=== PATIENT | male | born 1995 | race Caucasian/White ===

== ENCOUNTER 2017-08-11 13:23 | Inpatient (IN) | payer OTHER ==
[2017-08-11] MEDS: NS 1,000 ML IV ONE ×2 (13:45→16:38)
[2017-08-11] MEDS ORDERED: ONDANSETRON 4 MG/2 ML VIAL IVP ONE (14:14)
[2017-08-11 14:18] LABS: PLATELET COUNT 203 10^3/uL (150-400)
--- NOTE | 2017-08-11 14:55 | EDPHY ---
H & P Stated Complaint: dx viral inf/ cough/n/v not getting better Time Seen by Provider: 08/11/17 14:00 HPI/ROS: CHIEF COMPLAINT: Vomiting, cough, diarrhea HISTORY OF PRESENT ILLNESS: The patient is type 1 diabetic who presents to the emergency department with a one-week history of vomiting, diarrhea and mild cough. The patient reportedly was seen at urgent care earlier in the week and given a prescription for anti emetics. He reports that he continues to have ongoing vomiting and loose stool. The patient reports he takes insulin for management of his diabetes. The patient reports he has had a dry slightly productive cough over the past several days. REVIEW OF SYSTEMS: A comprehensive 10 point review of systems is otherwise negative aside from elements mentioned in the history of present illness. Source: Patient Exam Limitations: No limitations - Personal History Current Tetanus/Diphtheria Vaccine: Yes - Medical/Surgical History Hx Asthma: No Hx Chronic Respiratory Disease: No Hx Diabetes: Yes Hx Cardiac Disease: No Hx Renal Disease: No Hx Cirrhosis: No Hx Alcoholism: No Hx HIV/AIDS: No Hx Splenectomy or Spleen Trauma: No Other PMH: Diabetic - Social History Smoking Status: Current some day smoker - Physical Exam Exam: General Appearance: Alert, no distress Eyes: Pupils equal and round no pallor or injection ENT, Mouth: Mucous membranes moist Respiratory: There are no retractions, lungs are clear to auscultation Cardiovascular: Regular rate and rhythm Gastrointestinal: Abdomen is soft and nontender, no masses, bowel sounds normal Neurological: A&O, normal motor function, normal sensory exam, normal cranial nerves Skin: Warm and dry, no rashes Musculoskeletal: Neck is supple nontender Extremities: symmetrical, full range of motion Constitutional: Initial Vital Signs Temperature (C) 37 C 08/11/17 13:27 Heart Rate 75 08/11/17 13:27 Respiratory Rate 18 08/11/17 13:27 Blood Pressure 125/86 H 08/11/17 13:27 O2 Sat (%) 92 08/11/17 13:27 O2 Delivery Mode Room Air Allergies/Adverse Reactions: No Known Allergies Allergy (Verified 08/11/17 13:26) Home Medications: Medication Instructions Recorded Acetaminophen [Tylenol ES 500 mg 500 mg PO Q6 PRN 08/11/17 (*)] Insulin Aspart [novoLOG] 25 unit SQ 5XD 08/11/17 Ranitidine HCl [Zantac] 150 mg PO DAILY PRN 08/11/17 Medical Decision Making - Diagnostics Imaging Results: Imaging Impressions Chest X-Ray 08/11/17 14:12 Impression: Clear lungs. No pneumonia. ED Course/Re-evaluation: The patient had an IV established. He received a L of normal saline. He received 4 mg of IV Zofran. Given his cough and chest x-ray was obtained which demonstrates no evidence of an obvious pneumonia. The patient is noted to have hyperglycemia with an anion gap of 17. The patient's venous pH is normal. The patient's flu PCR is positive. The patient received 2 L of normal saline. The patient is noted to have a normal pH. The patient does appear clinically dehydrated. I do feel the patient needs admission to the hospital in the setting of his hyponatremia, hypokalemia, acute influenza and borderline diabetic ketoacidosis. Consultation was made with Dr. Roland from the hospitalist service who will admit the patient. The patient received 10 units of IV insulin has been started on insulin drip for management of his borderline diabetic ketoacidosis. Differential Diagnosis: Differential diagnosis considered includes diabetic ketoacidosis, hyperglycemia , dehydration, pneumonia, metabolic abnormality, renal failure Critical Care Time: Critical care time exclusive of procedures and exclusive of the PA's time was 32 minutes, performed by myself, Marcial Duran MD. The patient presents to the ED with diabetic ketoacidosis, acute influenza and dehydration. The patient received a insulin bolus and was started on insulin drip. He will be admitted to the intensive care unit for further stabilization this evening. - Data Points Laboratory Results: Laboratory Results 08/11/17 13:50 08/11/17 13:50 08/11/17 08/11/17 08/11/17 14:55 14:20 13:50 WBC RBC Hgb Hct MCV MCH MCHC RDW Plt Count MPV Neut % (Auto) Lymph % (Auto) [place] % (Auto) Eos % (Auto) Baso % (Auto) Nucleat RBC Rel Count Absolute Neuts (auto) Absolute Lymphs (auto) Absolute Monos (auto) Absolute Eos (auto) Absolute Basos (auto) Absolute Nucleated RBC Immature Gran % Immature Gran # Puncture Site NONE GIVEN Patient Temperature 37.0 DEGREES DEGREES VBG pH 7.38 (7.31-7.42) VBG HCO3 23 mEQ/L mEQ/L (22-26) VBG Total CO2 24 mEq/L mEq/L (23-27) VBG O2 Saturation 87 % H % (65-75) VBG Base Excess -1.9 mEq/L mEq/L (-2.5-2.5) Mixed VBG pCO2 39 mmHg L mmHg (40-44) Mixed VBG pO2 57 mmHg H mmHg (35-40) Sodium Potassium Chloride Carbon Dioxide Anion Gap BUN Creatinine Estimated GFR Glucose Calcium Beta-Hydroxybutyrate 3.27 mmol/L H mmol/L (0.02-0.27) Nasal Influenza A PCR FLU A DETECTED H (NEGATIVE) Nasal Influenza B PCR NEGATIVE FOR FLU B (NEGATIVE) Serum Ketones Cancelled 08/11/17 08/11/17 13:50 13:50 WBC 10.78 10^3/uL H 10^3/uL (3.80-9.50) RBC 5.25 10^6/uL 10^6/uL (4.40-6.38) Hgb 15.3 g/dL g/dL (13.7-17.5) Hct 43.1 % % (40.0-51.0) MCV 82.1 fL fL (81.5-99.8) MCH 29.1 pg pg (27.9-34.1) MCHC 35.5 g/dL g/dL (32.4-36.7) RDW 11.9 % % (11.5-15.2) Plt Count 203 10^3/uL 10^3/uL (150-400) MPV 11.1 fL fL (8.7-11.7) Neut % (Auto) 81.9 % H % (39.3-74.2) Lymph % (Auto) 10.9 % L % (15.0-45.0) [place] % (Auto) 6.4 % % (4.5-13.0) Eos % (Auto) 0.0 % L % (0.6-7.6) Baso % (Auto) 0.3 % % (0.3-1.7) Nucleat RBC Rel Count 0.0 % % (0.0-0.2) Absolute Neuts (auto) 8.84 10^3/uL H 10^3/uL (1.70-6.50) Absolute Lymphs (auto) 1.17 10^3/uL 10^3/uL (1.00-3.00) Absolute Monos (auto) 0.69 10^3/uL 10^3/uL (0.30-0.80) Absolute Eos (auto) 0.00 10^3/uL L 10^3/uL (0.03-0.40) Absolute Basos (auto) 0.03 10^3/uL 10^3/uL (0.02-0.10) Absolute Nucleated RBC 0.00 10^3/uL 10^3/uL (0-0.01) Immature Gran % 0.5 % % (0.0-1.1) Immature Gran # 0.05 10^3/uL 10^3/uL (0.00-0.10) Puncture Site Patient Temperature VBG pH VBG HCO3 VBG Total CO2 VBG O2 Saturation VBG Base Excess Mixed VBG pCO2 Mixed VBG pO2 Sodium 128 mEq/L L mEq/L (134-144) Potassium 4.1 mEq/L mEq/L (3.5-5.2) Chloride 88 mEq/L L mEq/L (97-110) Carbon Dioxide 23 mEq/l mEq/l (22-31) Anion Gap 17 mEq/L H mEq/L (8-16) BUN 15 mg/dL mg/dL (7-23) Creatinine 1.0 mg/dL mg/dL (0.7-1.3) Estimated GFR > 60 Glucose 529 mg/dL H* mg/dL (70-100) Calcium 9.0 mg/dL mg/dL (8.5-10.4) Beta-Hydroxybutyrate Nasal Influenza A PCR Nasal Influenza B PCR Serum Ketones Medications Given: Discontinued Medications Sodium Chloride (Ns) 1,000 mls @ 0 mls/hr IV ONCE ONE; Wide Open PRN Reason: Protocol Stop: 08/11/17 14:13 Last Admin: 08/11/17 13:45 Dose: 1,000 mls Ondansetron HCl (Zofran) 4 mg IVP EDNOW ONE Stop: 08/11/17 14:15 Last Admin: 08/11/17 14:20 Dose: 4 mg Oseltamivir Phosphate (Tamiflu) 75 mg PO EDNOW ONE Stop: 08/11/17 15:11 Last Admin: 08/11/17 15:35 Dose: 75 mg Departure - Departure Disposition: [facility] Acute Clinical Impression: Influenza, Diabetic ketoacidosis Condition: Fair
[2017-08-11] MEDS ORDERED: OSELTAMIVIR PHOSPHATE 75 MG CAP PO ONE (15:10)
[2017-08-11] MEDS ORDERED: INSULIN REGULAR HUMAN 100 UNIT, COSIGN. REQUIRED 1 EA in NS 100 ML IV ONE (15:11)
[2017-08-11] MEDS ORDERED: INSULIN REGULAR HUMAN 100 UNIT/ML IVP ONE (15:11)
[2017-08-11] MEDS ORDERED: ALBUTEROL 3 ML DEYVIAL IH PRN (16:15)
[2017-08-11] MEDS ORDERED: ONDANSETRON DISINTEGRATING 4 MG TAB PO PRN (16:15)
[2017-08-11] MEDS ORDERED: ACETAMINOPHEN 325 MG TAB PO PRN (16:15)
[2017-08-11] MEDS ORDERED: ONDANSETRON 4 MG/2 ML VIAL IVP PRN (16:15)
[2017-08-11] MEDS ORDERED: NS 1,000 ML IV ONE (16:21)
[2017-08-11] MEDS ORDERED: NS 1,000 ML IV SCH (16:30)
[2017-08-11] MEDS ORDERED: INSULIN REGULAR HUMAN 100 UNIT in NS 100 ML IV SCH ×2 (16:30→20:15)
[2017-08-11] MEDS ORDERED: PROTOCOL MAGNESIUM 1 DOSE IV PRN (16:52)
[2017-08-11] MEDS ORDERED: PROTOCOL POTASSIUM 1 DOSE MISC PRN ×2 (16:52)
--- NOTE | 2017-08-11 16:58 | PDGENHP ---
History and Physical - Chief Complaint N/V - History of Present Illness This is a 22 yo male with hx of IDDM since age 4 with insulin pump who has been having n/v, fever, malaise for a week. He did not receive an influenza vaccination this year. In the E.D he was diagnosed with Influenza A. His labs are c/w glucose around 500's, CO2 23, AG 17. He is being admitted for Influenza A, dehydration, and mild DKA. He feels better since starting IVF. He is no longer having Nausea. Denies CP, SOB, palpitations, leg edema, focal weakness. PMHx: DMI PSHx: none Soc: no E, daily T, student FmHx: hx of DM I (twin brother) History Information - Allergies/Home Medication List Allergies/Adverse Reactions: No Known Allergies Allergy (Verified 08/11/17 13:26) Home Medications: Acetaminophen [Tylenol ES 500 mg (*)] 500 mg PO Q6 PRN 08/11/17 [Last Taken 10/27 10:00] Insulin Aspart [novoLOG] 25 unit SQ 5XD 08/11/17 [Last Taken 08/11/17 13:00] Ranitidine HCl [Zantac] 150 mg PO DAILY PRN 08/11/17 [Last Taken 5 Days Ago ~] I have personally reviewed and updated: family history, medical history, social history - Social History Smoking Status: Current some day smoker Review of Systems Review of Systems: ROS: 10pt was reviewed & negative except for what was stated in HPI & below Physical Exam Physical Exam: Temp Pulse Resp BP Pulse Ox 36.9 C 88 18 129/52 H 92 08/11/17 15:30 08/11/17 15:30 08/11/17 15:30 08/11/17 15:30 08/11/17 15:33 O2 (L/minute) 2 Constitutional: no apparent distress Eyes: PERRL, EOMI Ears, Nose, Mouth, Throat: hearing normal, dry mucous membranes Cardiovascular: regular rate and rhythym, No bradycardia, No edema Respiratory: no respiratory distress, no rales or rhonchi Gastrointestinal: normoactive bowel sounds, soft, non-tender abdomen Genitourinary: no bladder fullness Skin: warm Musculoskeletal: full muscle strength Neurologic: AAOx3 Psychiatric: interacting appropriately, not anxious, not encephalopathic Lab Data & Imaging Review 08/11/17 13:50 08/11/17 13:50 WBC 10.78 10^3/uL (3.80-9.50) H 08/11/17 13:50 RBC 5.25 10^6/uL (4.40-6.38) 08/11/17 13:50 Hgb 15.3 g/dL (13.7-17.5) 08/11/17 13:50 Hct 43.1 % (40.0-51.0) 08/11/17 13:50 MCV 82.1 fL (81.5-99.8) 08/11/17 13:50 MCH 29.1 pg (27.9-34.1) 08/11/17 13:50 MCHC 35.5 g/dL (32.4-36.7) 08/11/17 13:50 RDW 11.9 % (11.5-15.2) 08/11/17 13:50 Plt Count 203 10^3/uL (150-400) 08/11/17 13:50 MPV 11.1 fL (8.7-11.7) 08/11/17 13:50 Neut % (Auto) 81.9 % (39.3-74.2) H 08/11/17 13:50 Lymph % (Auto) 10.9 % (15.0-45.0) L 08/11/17 13:50 [place] % (Auto) 6.4 % (4.5-13.0) 08/11/17 13:50 Eos % (Auto) 0.0 % (0.6-7.6) L 08/11/17 13:50 Baso % (Auto) 0.3 % (0.3-1.7) 08/11/17 13:50 Nucleat RBC Rel Count 0.0 % (0.0-0.2) 08/11/17 13:50 Absolute Neuts (auto) 8.84 10^3/uL (1.70-6.50) H 08/11/17 13:50 Absolute Lymphs (auto) 1.17 10^3/uL (1.00-3.00) 08/11/17 13:50 Absolute Monos (auto) 0.69 10^3/uL (0.30-0.80) 08/11/17 13:50 Absolute Eos (auto) 0.00 10^3/uL (0.03-0.40) L 08/11/17 13:50 Absolute Basos (auto) 0.03 10^3/uL (0.02-0.10) 08/11/17 13:50 Absolute Nucleated RBC 0.00 10^3/uL (0-0.01) 08/11/17 13:50 Immature Gran % 0.5 % (0.0-1.1) 08/11/17 13:50 Immature Gran # 0.05 10^3/uL (0.00-0.10) 08/11/17 13:50 Puncture Site NONE GIVEN 08/11/17 14:55 Patient Temperature 37.0 DEGREES 08/11/17 14:55 VBG pH 7.38 (7.31-7.42) 08/11/17 14:55 VBG HCO3 23 mEQ/L (22-26) 08/11/17 14:55 VBG Total CO2 24 mEq/L (23-27) 08/11/17 14:55 VBG O2 Saturation 87 % (65-75) H 08/11/17 14:55 VBG Base Excess -1.9 mEq/L (-2.5-2.5) 08/11/17 14:55 Mixed VBG pCO2 39 mmHg (40-44) L 08/11/17 14:55 Mixed VBG pO2 57 mmHg (35-40) H 08/11/17 14:55 Sodium 128 mEq/L (134-144) L 08/11/17 13:50 Potassium 4.1 mEq/L (3.5-5.2) 08/11/17 13:50 Chloride 88 mEq/L (97-110) L 08/11/17 13:50 Carbon Dioxide 23 mEq/l (22-31) 08/11/17 13:50 Anion Gap 17 mEq/L (8-16) H 08/11/17 13:50 BUN 15 mg/dL (7-23) 08/11/17 13:50 Creatinine 1.0 mg/dL (0.7-1.3) 08/11/17 13:50 Estimated GFR > 60 08/11/17 13:50 Glucose 529 mg/dL (70-100) H* 08/11/17 13:50 Calcium 9.0 mg/dL (8.5-10.4) 08/11/17 13:50 Beta-Hydroxybutyrate 3.27 mmol/L (0.02-0.27) H 08/11/17 13:50 Nasal Influenza A PCR FLU A DETECTED (NEGATIVE) H 08/11/17 14:20 Nasal Influenza B PCR NEGATIVE FOR FLU B (NEGATIVE) 08/11/17 14:20 Serum Ketones Cancelled 08/11/17 13:50 Assessment & Plan Assessment: #DM I with hyperglycemia and mild DKA. #Hyponatremia likely fictitious secondary to hyperglycemia #Significant Dehydration #Influenza A #Nausea Plan: -Admit to Step Down -IVF. Have discussed with the ED team to provide additional IVF as only one liter has been given -Insulin drip -will hold his insulin pump -Tamiflu -Antiemetics -Supportive Care -SCD's -Full code total critical care time spent on evaluation and management is 55 minutes
[2017-08-11] MEDS ORDERED: MAGNESIUM SULF 1 GM/DEXTROSE 100 ML IV ONE (18:37)
[2017-08-11] MEDS ORDERED: D50W 25 GM/50 ML SYR IVP ONE (19:58)
[2017-08-11] MEDS ORDERED: INSULIN REGULAR HUMAN 100 UNIT/ML IVP PRN (20:15)
[2017-08-11] MEDS ORDERED: D50W 25 GM/50 ML SYR IVP PRN (20:15)
[2017-08-11] MEDS: FAMOTIDINE 20 MG TAB PO SCH (20:39)
[2017-08-11] MEDS: BENZONATATE 100 MG CAP PO SCH (20:39)
[2017-08-11] MEDS ORDERED: PARAMETERS MISC PRN (22:23)
[2017-08-11] MEDS ORDERED: D50W 25 GM/50 ML VIAL IVP PRN (22:23)
[2017-08-11] MEDS ORDERED: INSULIN REGULAR HUMAN 100 UNIT/ML SC ONE (22:30)
[2017-08-12] MEDS: NS W/ 20 KCl/L 1,000 ML IV SCH ×2 (01:31→06:28)
[2017-08-12] MEDS ORDERED: INSULIN LISPRO 100 UNIT/ML SC ONE (01:37)
[2017-08-12 03:57] LABS: PLATELET COUNT 188 10^3/uL (150-400)
[2017-08-12] MEDS ORDERED: MAGNESIUM SULF 1 GM/DEXTROSE 100 ML IV ONE (05:19)
[2017-08-12] MEDS ORDERED: D5W NS 1,000 ML IV SCH (07:00)
[2017-08-12] MEDS ORDERED: INSULIN REGULAR, HUMAN 100 UNIT/1 ML VIAL LOW SC SCH (07:30)
[2017-08-12] MEDS ORDERED: OSELTAMIVIR PHOSPHATE 75 MG CAP PO SCH (08:00)
[2017-08-12] MEDS: BENZONATATE 100 MG CAP PO SCH (08:09)
[2017-08-12] MEDS: FAMOTIDINE 20 MG TAB PO SCH (08:09)
--- NOTE | 2017-08-12 08:15 | PDMN ---
Medical Necessity Medical necessity: M123 dehydration: persistant- req IV fluids>3L /day, with hyponatremia, hyperglycemia- mild DKA, influenza A +, N , O2 req ( 85% RA- 92% 2L) - PT with DM I,
[2017-08-12] MEDS ORDERED: D50W 25 GM/50 ML SYR IVP PRN (08:20)
[2017-08-12] MEDS ORDERED: INSULIN PUMP, PATIENT OWN 1 EA MISC SCH (08:30)
[2017-08-12 11:38] VITALS: TEMP 97.7
[2017-08-12 14:41] VITALS: BP 114/57; PULSE 94; RESP 17; O2SAT 93
--- NOTE | 2017-08-12 15:51 | ASMTCMCOM ---
CM Note CM Note Notes: Pateint dc'd to home independent, CM available should needs arise. Date Signed: 08/12/2017 03:51 PM Electronically Signed By:Debbie Bautista RN
--- NOTE | 2017-08-12 15:51 | ASMTCMCOM ---
CM Note CM Note Notes: Pateint dc'd to home independent, CM available should needs arise. Date Signed: 08/12/2017 03:51 PM Electronically Signed By:Debbie Bautista RN
--- NOTE | 2017-08-12 15:51 | ASMTCMCOM ---
CM Note CM Note Notes: Pateint dc'd to home independent, CM available should needs arise. Date Signed: 08/12/2017 03:51 PM Electronically Signed By:Debbie Bautista RN
--- NOTE | 2017-08-12 16:05 | GDS ---
[f rep st] DISCHARGE SUMMARY DIAGNOSES: 1. Diabetic ketoacidosis. 2. Influenza A positive. 3. Dehydration. 4. Pseudohyponatremia. 5. Nausea. HOSPITAL COURSE: A 22-year-old man, who had felt poorly for about a week. He had fever, malaise, co ugh. Found to be in DKA. Also found to be influenza A positive. 1. DKA: Type 1 diabetic however he is relatively insulin resistant. He manages his insulin with an insulin pump. He was corrected with an insulin drip. His initial bicarb was 23 with an anion gap o f 17. Initial blood sugar was in the 500s. This corrected easily, transitioned back to his insulin pump where he has managed himself all day. His blood sugar on discharge is 106. He has a continue s ensor that he uses at home which he will wear to continually monitor his blood glucoses. He does not have an advisor consultant in [place], I will give him referrals. He is here for school and has been s eeing an advisor consultant in [place]. 2. Influenza A: He is given a total of 5 days of Tamiflu. 3. Dehydration: He is feeling much better on discharge. BILLING: I spent more than 30 minutes on the day of discharge coordinating care. /[id number]/MODL
--- NOTE | 2017-08-12 16:05 | GDS ---
[f rep st] DISCHARGE SUMMARY DIAGNOSES: 1. Diabetic ketoacidosis. 2. Influenza A positive. 3. Dehydration. 4. Pseudohyponatremia. 5. Nausea. HOSPITAL COURSE: A 22-year-old man, who had felt poorly for about a week. He had fever, malaise, co ugh. Found to be in DKA. Also found to be influenza A positive. 1. DKA: Type 1 diabetic however he is relatively insulin resistant. He manages his insulin with an insulin pump. He was corrected with an insulin drip. His initial bicarb was 23 with an anion gap o f 17. Initial blood sugar was in the 500s. This corrected easily, transitioned back to his insulin pump where he has managed himself all day. His blood sugar on discharge is 106. He has a continue s ensor that he uses at home which he will wear to continually monitor his blood glucoses. He does not have an automotive parts person in [place], I will give him referrals. He is here for school and has been s eeing an automotive parts person in [place]. 2. Influenza A: He is given a total of 5 days of Tamiflu. 3. Dehydration: He is feeling much better on discharge. BILLING: I spent more than 30 minutes on the day of discharge coordinating care. /[id number]/MODL
--- NOTE | 2017-08-12 16:05 | GDS ---
[f rep st] DISCHARGE SUMMARY DIAGNOSES: 1. Diabetic ketoacidosis. 2. Influenza A positive. 3. Dehydration. 4. Pseudohyponatremia. 5. Nausea. HOSPITAL COURSE: A 22-year-old man, who had felt poorly for about a week. He had fever, malaise, co ugh. Found to be in DKA. Also found to be influenza A positive. 1. DKA: Type 1 diabetic however he is relatively insulin resistant. He manages his insulin with an insulin pump. He was corrected with an insulin drip. His initial bicarb was 23 with an anion gap o f 17. Initial blood sugar was in the 500s. This corrected easily, transitioned back to his insulin pump where he has managed himself all day. His blood sugar on discharge is 106. He has a continue s ensor that he uses at home which he will wear to continually monitor his blood glucoses. He does not have an first front ventilator in [place], I will give him referrals. He is here for school and has been s eeing an first front ventilator in [place]. 2. Influenza A: He is given a total of 5 days of Tamiflu. 3. Dehydration: He is feeling much better on discharge. BILLING: I spent more than 30 minutes on the day of discharge coordinating care. /[id number]/MODL
--- NOTE | 2017-08-13 09:02 | ASDISCHSUM ---
Discharge Information Plan Status:Home with No Needs Medically Cleared to Leave:08/12/2017 Discharge Date:08/12/2017 04:00 PM CM D/C Disposition:Home, Routine, Self-Care ADT D/C Disposition:Home, Routine, Self-Care Projected Discharge Date:08/12/2017 04:00 PM Transportation at D/C:Family Discharge Delay Reason: Follow-Up Date:08/12/2017 04:00 PM Discharge Slot: Final Diagnosis: Placement Information Patient Contact Information Contact Name:SCOTT Relationship: Address: Home Phone: Work Phone: City: Alternate Phone: State/[employer] Code: Email: Financial Information Financial Class:Dian [facility] Primary Plan Desc:DIAN O [employer]MO OPEN [employer] LOCAL Primary Plan Number:[id number] Secondary Plan Desc: Secondary Plan Number: Assessment Information [facility] CM Progress Note CM Note CM Note Notes: Luther lobo'kenny to home independent, CM available should needs arise. Date Signed: 08/12/2017 03:51 PM Electronically Signed By:Debbie Bautista RN Intervention Information Intervention Type:*Incorrect Registration Date of Service:08/12/2017 07:57 AM Patient Type:Observation Staff Member:LARISSA Riley, Clau Hours: Discipline: Severity: Comment:
--- NOTE | 2017-08-13 09:02 | ASDISCHSUM ---
Discharge Information Plan Status:Home with No Needs Medically Cleared to Leave:08/12/2017 Discharge Date:08/12/2017 04:00 PM CM D/C Disposition:Home, Routine, Self-Care ADT D/C Disposition:Home, Routine, Self-Care Projected Discharge Date:08/12/2017 04:00 PM Transportation at D/C:Family Discharge Delay Reason: Follow-Up Date:08/12/2017 04:00 PM Discharge Slot: Final Diagnosis: Placement Information Patient Contact Information Contact Name:SCOTT Relationship: Address: Home Phone: Work Phone: City: Alternate Phone: State/[employer] Code: Email: Financial Information Financial Class:Dian [facility] Primary Plan Desc:DIAN [employer] LOCAL Primary Plan Number:[id number] Secondary Plan Desc: Secondary Plan Number: Assessment Information [facility] CM Progress Note CM Note CM Note Notes: Luther lobo'kenny to home independent, CM available should needs arise. Date Signed: 08/12/2017 03:51 PM Electronically Signed By:Debbie Bautista RN Intervention Information Intervention Type:*Incorrect Registration Date of Service:08/12/2017 07:57 AM Patient Type:Observation Staff Member:LARISSA Riley, Clau Hours: Discipline: Severity: Comment:
--- NOTE | 2017-08-13 09:02 | ASDISCHSUM ---
Discharge Information Plan Status:Home with No Needs Medically Cleared to Leave:08/12/2017 Discharge Date:08/12/2017 04:00 PM CM D/C Disposition:Home, Routine, Self-Care ADT D/C Disposition:Home, Routine, Self-Care Projected Discharge Date:08/12/2017 04:00 PM Transportation at D/C:Family Discharge Delay Reason: Follow-Up Date:08/12/2017 04:00 PM Discharge Slot: Final Diagnosis: Placement Information Patient Contact Information Contact Name:SCOTT Relationship: Address: Home Phone: Work Phone: City: Alternate Phone: State/[employer] Code: Email: Financial Information Financial Class:Dian [facility] Primary Plan Desc:DIAN [employer]MO [employer] LOCAL Primary Plan Number:[id number] Secondary Plan Desc: Secondary Plan Number: Assessment Information [facility] CM Progress Note CM Note CM Note Notes: Luther lobo'kenny to home independent, CM available should needs arise. Date Signed: 08/12/2017 03:51 PM Electronically Signed By:Debbie Bautista RN Intervention Information Intervention Type:*Incorrect Registration Date of Service:08/12/2017 07:57 AM Patient Type:Observation Staff Member:LARISSA Riley, Clau Hours: Discipline: Severity: Comment:
== END 2017-08-12 16:00 | disposition home or self-care (01) | DRG 193 ==
LOC: OBSVTOIN 15:19 → F2N 17:39
PROVIDERS: ADMIT Family Medicine; ATTEND Family Medicine
DX: J10.1 Influenza due to other identified influenza virus with other respiratory manifestations (principal); E10.10 Type 1 diabetes mellitus with ketoacidosis without coma; E88.81 Metabolic syndrome and other insulin resistance; Z96.41 Presence of insulin pump (external) (internal); E86.0 Dehydration
CPT/HCPCS: 82947-QW; 96374; J1815; J2405; J3475

== ENCOUNTER 2017-08-17 17:59 | Inpatient (IN) | payer OTHER ==
[2017-08-17] MEDS ORDERED: NS 2,900 ML IV ONE (18:52)
[2017-08-17] MEDS ORDERED: IPRATROPIUM/ALBUTEROL 3 ML DEYVIAL IH ONE (18:59)
--- NOTE | 2017-08-17 19:09 | EDPHY ---
H & P Stated Complaint: DX FLU/GOT BETTER/THEN RELAPSED INCREASED FEVER COUGH/ Time Seen by Provider: 08/17/17 18:19 HPI/ROS: Chief complaint: Worsening cold symptoms History of present illness: This is a 22-year-old male, who is an insulin- dependent diabetic on an insulin pump, who presents to the emergency department for worsening cold symptoms. Patient developed cold symptoms over a week ago. He was seen at this hospital and diagnosed with influenza a and DKA and admitted to the hospital. He was treated with a full course of Tamiflu treated for his DKA and released. He states he initially was feeling well upon getting home, however he slowly started to worsen. He primarily reports now a deep cough, chest congestion and trouble breathing. He went to [facility] today where they were concerned for pneumonia and sent him here. Review of systems: A 10 point review of systems was obtained and other than described above was negative - Personal History Current Tetanus/Diphtheria Vaccine: Yes - Medical/Surgical History Hx Asthma: No Hx Chronic Respiratory Disease: No Hx Diabetes: Yes Hx Cardiac Disease: No Hx Renal Disease: No Hx Cirrhosis: No Hx Alcoholism: No Hx HIV/AIDS: No Hx Splenectomy or Spleen Trauma: No Other PMH: Diabetic since age 4 years old - Social History Smoking Status: Current some day smoker - Physical Exam Exam: General Appearance: Alert, nontoxic. Eyes: Pupils equal and round no pallor or injection. ENT, Mouth: Mucous membranes moist. Respiratory: Patient is speaking in full sentences. No use of accessary muscles. Wheezing and rales in the right lower lung field. Cardiovascular: Tachycardic with regular rhythm. Gastrointestinal: Abdomen is soft and non tender, no masses, bowel sounds normal. Neurological: Alert and oriented x4. Strength and sensation intact and symmetrical. No meningismus. Skin: Warm and dry, no rashes. Musculoskeletal: Neck is supple non tender. Extremities are symmetrical, full range of motion. Psychiatric: Patient is oriented X 3, there is no agitation. Constitutional: Initial Vital Signs Temperature (C) 37.4 C 08/17/17 18:23 Heart Rate 137 H 08/17/17 18:23 Respiratory Rate 22 H 08/17/17 18:23 Blood Pressure 111/88 H 08/17/17 18:23 O2 Sat (%) 91 L 08/17/17 18:23 O2 Delivery Mode Room Air Allergies/Adverse Reactions: No Known Allergies Allergy (Verified 08/17/17 18:23) Home Medications: Medication Instructions Recorded Insulin Aspart [novoLOG] 25 unit SQ AD 08/11/17 Medical Decision Making - Diagnostics Imaging: Discussed imaging studies w/ fly tier Radiologist ED Course/Re-evaluation: I reviewed the patient's outpatient x-ray from the [facility] that was taken today with Dr. David Serrano. He notes a right lower lobe infiltrate and possible lingular infiltrate. Patient is discussed at length with my secondary supervising physician Dr. Luis Ballesteros. Patient presents to the emergency department with suspected pneumonia after recently being hospitalized for influenza A with DKA. On presentation he was unwell appearing. He was tachycardic. He did become hypoxic to the mid 80 percentile in the emergency room. Sepsis protocol was begun upon patient arrival. Ultimately he triggered severe sepsis protocol, he was aggressively IV hydrated and started on broad-spectrum antibiotics including vancomycin and Zosyn. He was further symptomatically treated with a nebulizer and placed on oxygen. Vital signs improved. Lactate was rechecked and had returned to within normal limits. Patient is admitted to the step-down unit under the care of Dr. Carlos Alberto Serrano. The plan has been discussed with the patient voiced understanding and agreement with it. Differential Diagnosis: Included but not limited to bronchitis, pneumonia, influenza, pneumothorax, DKA - Data Points Laboratory Results: Laboratory Results 08/17/17 19:05 08/17/17 19:05 08/17/17 08/17/17 08/17/17 19:05 19:05 19:05 WBC 18.56 10^3/uL H 10^3/uL (3.80-9.50) RBC 5.30 10^6/uL 10^6/uL (4.40-6.38) Hgb 15.5 g/dL g/dL (13.7-17.5) Hct 43.1 % % (40.0-51.0) MCV 81.3 fL L fL (81.5-99.8) MCH 29.2 pg pg (27.9-34.1) MCHC 36.0 g/dL g/dL (32.4-36.7) RDW 12.1 % % (11.5-15.2) Plt Count 548 10^3/uL H 10^3/uL (150-400) MPV 10.5 fL fL (8.7-11.7) Neut % (Auto) 80.0 % H % (39.3-74.2) Lymph % (Auto) 11.0 % L % (15.0-45.0) [place] % (Auto) 6.7 % % (4.5-13.0) Eos % (Auto) 0.4 % L % (0.6-7.6) Baso % (Auto) 0.4 % % (0.3-1.7) Nucleat RBC Rel Count 0.0 % % (0.0-0.2) Absolute Neuts (auto) 14.83 10^3/uL H 10^3/uL (1.70-6.50) Absolute Lymphs (auto) 2.05 10^3/uL 10^3/uL (1.00-3.00) Absolute Monos (auto) 1.24 10^3/uL H 10^3/uL (0.30-0.80) Absolute Eos (auto) 0.08 10^3/uL 10^3/uL (0.03-0.40) Absolute Basos (auto) 0.08 10^3/uL 10^3/uL (0.02-0.10) Absolute Nucleated RBC 0.00 10^3/uL 10^3/uL (0-0.01) Immature Gran % 1.5 % H % (0.0-1.1) Immature Gran # 0.28 10^3/uL H 10^3/uL (0.00-0.10) PT 15.4 SEC H SEC (12.0-15.0) INR 1.22 H (0.83-1.16) APTT 32.5 SEC SEC (23.0-38.0) VBG Lactic Acid Sodium 138 mEq/L mEq/L (134-144) Potassium 3.7 mEq/L mEq/L (3.5-5.2) Chloride 96 mEq/L L mEq/L (97-110) Carbon Dioxide 25 mEq/l mEq/l (22-31) Anion Gap 17 mEq/L H mEq/L (8-16) BUN 8 mg/dL mg/dL (7-23) Creatinine 0.9 mg/dL mg/dL (0.7-1.3) Estimated GFR > 60 Glucose 166 mg/dL H mg/dL (70-100) Calcium 10.0 mg/dL mg/dL (8.5-10.4) Total Bilirubin 0.8 mg/dL mg/dL (0.1-1.4) 08/17/17 19:05 WBC RBC Hgb Hct MCV MCH MCHC RDW Plt Count MPV Neut % (Auto) Lymph % (Auto) [place] % (Auto) Eos % (Auto) Baso % (Auto) Nucleat RBC Rel Count Absolute Neuts (auto) Absolute Lymphs (auto) Absolute Monos (auto) Absolute Eos (auto) Absolute Basos (auto) Absolute Nucleated RBC Immature Gran % Immature Gran # PT INR APTT VBG Lactic Acid 2.9 mmol/L H mmol/L (0.7-2.1) Sodium Potassium Chloride Carbon Dioxide Anion Gap BUN Creatinine Estimated GFR Glucose Calcium Total Bilirubin Medications Given: Discontinued Medications Albuterol/Ipratropium (Duoneb) 3 ml IH EDNOW ONE Stop: 08/17/17 19:00 Last Admin: 08/17/17 19:22 Dose: 3 ml Sodium Chloride (Ns) 2,900 mls @ 5,800 mls/hr 30 ml/kg infuse over 30 min ( 2900 ml) IV EDNOW ONE PRN Reason: Protocol Stop: 08/17/17 19:21 Last Admin: 08/17/17 19:14 Dose: 2,900 mls Vancomycin/Sodium Chloride (Vancomycin 1 Gm (Premix)) 250 mls @ 250 mls/hr IV EDNOW ONE PRN Reason: Protocol Stop: 08/17/17 20:41 Last Admin: 08/17/17 20:04 Dose: 250 mls Piperacillin/Tazobactam/Dextrose (Zosyn (Premix)) 100 mls @ 200 mls/hr IV EDNOW ONE PRN Reason: Protocol Stop: 08/17/17 20:34 Last Admin: 08/17/17 21:55 Dose: 100 mls Departure - Departure Disposition: [facility] Clinical Impression: Pneumonia Qualifiers: Pneumonia type: due to unspecified organism Laterality: right Lung location: lower lobe of lung Qualified Code(s): J18.1 - Lobar pneumonia, unspecified organism Condition: Fair
[2017-08-17 19:35] LABS: % IMMATURE GRANULYOCYTES 1.5 % (0.0-1.1); ABSOLUTE IMMATURE GRANULOCYTES 0.28 10^3/uL (0.00-0.10); ADD DIFF? NO; ADD MORPH? NO; ADD SCAN? NO; ATYPICAL LYMPHOCYTE FLAG 10 (0-99); FRAGMENT RBC FLAG 0 (0-99); HEMATOCRIT 43.1 % (40.0-51.0); HEMOGLOBIN 15.5 g/dL (13.7-17.5); LEFT SHIFT FLG 10 (0-99); LIPEMIA HEMOLYSIS FLAG 90 (0-99); MEAN CELL HEMOGLOBIN 29.2 pg (27.9-34.1); MEAN CELL VOLUME 81.3 fL (81.5-99.8); MEAN PLATELET VOLUME 10.5 fL (8.7-11.7); PLATELET CLUMPS FLAG 0 (0-99); PLATELET COUNT 548 10^3/uL (150-400); RED CELL DISTRIBUTION WIDTH 12.1 % (11.5-15.2)
[2017-08-17] MEDS ORDERED: VANCOMYCIN HCL/NORMAL SALINE 250 ML IV ONE (19:42)
[2017-08-17 19:49] LABS: INR 1.22 (0.83-1.16); PROTIME(PATIENT) 15.4 SEC (12.0-15.0)
[2017-08-17 19:50] LABS: ANION GAP 17 mEq/L (8-16); APTT 32.5 SEC (23.0-38.0); BILIRUBIN,TOTAL 0.8 mg/dL (0.1-1.4); CARBON DIOXIDE 25 mEq/l (22-31); CHLORIDE 96 mEq/L (97-110); CREATININE 0.9 mg/dL (0.7-1.3); GLOMERULAR FILTRATION RATE > 60; GLUCOSE 166 mg/dL (70-100); POTASSIUM 3.7 mEq/L (3.5-5.2); SODIUM 138 mEq/L (134-144)
[2017-08-17] MEDS ORDERED: PIPERACILLIN/TAZO 3.375 GM/DEX 50 ML IV ONE (20:04)
[2017-08-17] MEDS ORDERED: PIPERACILLIN/TAZO 4.5 GM/DEX 100 ML IV ONE (20:05)
[2017-08-17] MEDS ORDERED: ONDANSETRON 4 MG/2 ML VIAL IVP PRN (20:07)
[2017-08-17] MEDS ORDERED: ACETAMINOPHEN 325 MG TAB PO PRN (20:07)
[2017-08-17] MEDS ORDERED: ONDANSETRON DISINTEGRATING 4 MG TAB PO PRN (20:07)
[2017-08-17] MEDS ORDERED: NS 1,000 ML IV SCH (20:15)
[2017-08-17] MEDS ORDERED: INSULIN ASPART 25 UNIT SQ SCH (22:45)
[2017-08-17] MEDS ORDERED: ALBUTEROL 3 ML DEYVIAL IH PRN (22:49)
--- NOTE | 2017-08-17 22:54 | PDGENHP ---
History and Physical - Chief Complaint Acute cough - History of Present Illness PCP: [facility] HPI: 22 yo M p/w acutely worsening cough characterized as non-productive, w/ associated gagging, vomiting, and generalized fatigue. Onset of fatigue symptoms was approx 1 week ago, and duration has been somewhat improving thereafter; but his cough persists, and seems to exacerbate his gag reflex, causing him to vomit. Consequently, his PO intake has been low. He has continued on his insulin pump. He completed his entire course of tamiflu s/p most recent discharge. He was seen in [facility] today, CXR was performed, and read was RLL/[place] PNA. History Information - Allergies/Home Medication List Allergies/Adverse Reactions: No Known Allergies Allergy (Verified 08/17/17 18:23) Home Medications: Insulin Aspart [novoLOG] 25 unit SQ AD 08/11/17 [Last Taken 08/17/17] I have personally reviewed and updated: family history, medical history, social history, surgical history - Past Medical History diabetes type 1 (on insulin pump, recent hospitalization for DKA) Additional medical history: recent Influenza A - Surgical History Reports: no pertinent surgical hx - Family History Additional family history: no pulmonary conditions - Social History Smoking Status: Current some day smoker Alcohol Use: None Drug Use: Marijuana 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, studying business Review of Systems Review of Systems: ROS: 10pt was reviewed & negative except for what was stated in HPI & below Constitutional: Reports: weakness Respiratory: Reports: cough, shortness of breath Gastrointestinal: Reports: vomitting Physical Exam Physical Exam: Temp Pulse Resp BP Pulse Ox 37.8 C 120 H 20 134/79 H 94 08/17/17 20:11 08/17/17 20:11 08/17/17 20:11 08/17/17 20:11 08/17/17 20:11 O2 (L/minute) 4 Constitutional: no apparent distress, not in pain, uncomfortable Eyes: PERRL, anicteric sclera, EOMI Ears, Nose, Mouth, Throat: moist mucous membranes, hearing normal, ears appear normal, no oral mucosal ulcers Cardiovascular: tachycardia, No systolic murmur, No irregularly irregular, No edema Respiratory: reduced air movement (on expiration bilat), expiratory wheeze, bronchial breath sounds, rhonchi (on insp mid posterior segments), No inspiratory crackles, No respiratory distress Gastrointestinal: normoactive bowel sounds, soft, non-tender abdomen, no palpable masses Skin: warm, normal color, no rashes or abrasions, no fluctuance, no induration, No mottled Neurologic: AAOx3, sensation intact bilaterally, No weakness, No facial droop Psychiatric: interacting appropriately, not anxious, not encephalopathic, thought process linear Lab Data & Imaging Review 08/17/17 19:05 08/17/17 19:05 WBC 18.56 10^3/uL (3.80-9.50) H 08/17/17 19:05 RBC 5.30 10^6/uL (4.40-6.38) 08/17/17 19:05 Hgb 15.5 g/dL (13.7-17.5) 08/17/17 19:05 Hct 43.1 % (40.0-51.0) 08/17/17 19:05 MCV 81.3 fL (81.5-99.8) L 08/17/17 19:05 MCH 29.2 pg (27.9-34.1) 08/17/17 19:05 MCHC 36.0 g/dL (32.4-36.7) 08/17/17 19:05 RDW 12.1 % (11.5-15.2) 08/17/17 19:05 Plt Count 548 10^3/uL (150-400) H 08/17/17 19:05 MPV 10.5 fL (8.7-11.7) 08/17/17 19:05 Neut % (Auto) 80.0 % (39.3-74.2) H 08/17/17 19:05 Lymph % (Auto) 11.0 % (15.0-45.0) L 08/17/17 19:05 [place] % (Auto) 6.7 % (4.5-13.0) 08/17/17 19:05 Eos % (Auto) 0.4 % (0.6-7.6) L 08/17/17 19:05 Baso % (Auto) 0.4 % (0.3-1.7) 08/17/17 19:05 Nucleat RBC Rel Count 0.0 % (0.0-0.2) 08/17/17 19:05 Absolute Neuts (auto) 14.83 10^3/uL (1.70-6.50) H 08/17/17 19:05 Absolute Lymphs (auto) 2.05 10^3/uL (1.00-3.00) 08/17/17 19:05 Absolute Monos (auto) 1.24 10^3/uL (0.30-0.80) H 08/17/17 19:05 Absolute Eos (auto) 0.08 10^3/uL (0.03-0.40) 08/17/17 19:05 Absolute Basos (auto) 0.08 10^3/uL (0.02-0.10) 08/17/17 19:05 Absolute Nucleated RBC 0.00 10^3/uL (0-0.01) 08/17/17 19:05 Immature Gran % 1.5 % (0.0-1.1) H 08/17/17 19:05 Immature Gran # 0.28 10^3/uL (0.00-0.10) H 08/17/17 19:05 PT 15.4 SEC (12.0-15.0) H 08/17/17 19:05 INR 1.22 (0.83-1.16) H 08/17/17 19:05 APTT 32.5 SEC (23.0-38.0) 08/17/17 19:05 VBG Lactic Acid 1.3 mmol/L (0.7-2.1) D 08/17/17 21:10 Sodium 138 mEq/L (134-144) 08/17/17 19:05 Potassium 3.7 mEq/L (3.5-5.2) 08/17/17 19:05 Chloride 96 mEq/L (97-110) L 08/17/17 19:05 Carbon Dioxide 25 mEq/l (22-31) 08/17/17 19:05 Anion Gap 17 mEq/L (8-16) H 08/17/17 19:05 BUN 8 mg/dL (7-23) 08/17/17 19:05 Creatinine 0.9 mg/dL (0.7-1.3) 08/17/17 19:05 Estimated GFR > 60 08/17/17 19:05 Glucose 166 mg/dL (70-100) H 08/17/17 19:05 Calcium 10.0 mg/dL (8.5-10.4) 08/17/17 19:05 Total Bilirubin 0.8 mg/dL (0.1-1.4) 08/17/17 19:05 Visualized and Interpreted Chest x-ray results: Yes Chest X-Ray results: other (possible RLL and lingular infiltates, not overtly consolidated) Assessment & Plan Assessment: 22 yo M p/w acute reactive airway exacerbation in setting of possible pneumonia Plan: # Acute reactive airway exacerbation. Evidenced by diffuse exp wheezes/bronch breath sounds, likely triggered by recent Influenza A or post-viral PNA - cont amita duonebs - start pred 40mg, D#1/ - on Abx - PRN albuterol - cont supp o2 # Possible Pneumonia. POA, acute, faint infiltrates on CXR + leukocytosis + lactic acidosis, get further w/u to determine if this is a post-viral PNA vs. fading viral pattern - get chest CT w/o contrast to confirm or deny infiltrates - get PCT, as a post-viral organism (MRSA or Pseuomonas) would have a significantly elevated value - d/w Levy Chen, ED provider, we agreed on empiric coverage w/ Vanco/Zosyn given his lactic acidosis - sputum Cx - monitor WBC # Hyperglycemia and DM1. High risk for recurrent DKA, controlling on insulin pump, d/w patient and RN, plan will be to continue pump at this time, but if gap widening on MN labs then would rec ISS PRN bolus, increase IVF, and increase freq lab monitoring - get BMP at MN # Metabolic Acidosis. Acute, lactic, 2/2 hypovolemia in setting of above - resolved w/ IVF, cont NS at 150/hr Diet. ADA PPx. Low risk, SCDs Code. Full Dispo. ADD uncertain, pending further w/u as outlined above, ongoing IV Abx needs, ongoing scheduled neb tx.
[2017-08-17] MEDS ORDERED: INSULIN PUMP SQ SCH (23:00)
[2017-08-17] MEDS: predniSONE 20 MG TAB PO SCH ×2 (23:03→23:04)
[2017-08-17] MEDS: guaiFENesin 600 MG TAB.ER PO SCH (23:05)
[2017-08-17 23:57] LABS: ANION GAP 10 mEq/L (8-16); CALCIUM 8.5 mg/dL (8.5-10.4); CARBON DIOXIDE 26 mEq/l (22-31); CHLORIDE 104 mEq/L (97-110); CREATININE 0.8 mg/dL (0.7-1.3); GLOMERULAR FILTRATION RATE > 60; GLUCOSE 80 mg/dL (70-100); POTASSIUM 3.2 mEq/L (3.5-5.2); SODIUM 140 mEq/L (134-144)
[2017-08-17 23:58] LABS: PROCALCITONIN 0.33 ng/mL (0.02-0.10)
[2017-08-18] MEDS: IPRATROPIUM/ALBUTEROL 3 ML DEYVIAL IH SCH ×5 (00:11→23:44)
[2017-08-18] MEDS ORDERED: PIPERACILLIN/TAZO 4.5 GM/DEX 100 ML IV SCH ×2 (02:00)
[2017-08-18] MEDS: PIPERACILLIN/TAZO 4.5 GM/DEX 100 ML IV SCH ×4 (04:18→22:37)
[2017-08-18 04:42] LABS: ABSOLUTE IMMATURE GRANULOCYTES 0.18 10^3/uL (0.00-0.10); ADD DIFF? NO; ADD MORPH? NO; ADD SCAN? NO; ATYPICAL LYMPHOCYTE FLAG 0 (0-99); FRAGMENT RBC FLAG 0 (0-99); HEMATOCRIT 36.4 % (40.0-51.0); HEMOGLOBIN 12.9 g/dL (13.7-17.5); LEFT SHIFT FLG 10 (0-99); LIPEMIA HEMOLYSIS FLAG 90 (0-99); MEAN CELL HEMOGLOBIN 29.4 pg (27.9-34.1); MEAN CELL HEMOGLOBIN CONCENTR. 35.4 g/dL (32.4-36.7); MEAN CELL VOLUME 82.9 fL (81.5-99.8); MEAN PLATELET VOLUME 10.2 fL (8.7-11.7); PLATELET CLUMPS FLAG 10 (0-99); PLATELET COUNT 429 10^3/uL (150-400); RED BLOOD CELL COUNT 4.39 10^6/uL (4.40-6.38); RED CELL DISTRIBUTION WIDTH 12.1 % (11.5-15.2)
[2017-08-18 05:12] LABS: ALANINE AMINOTRANSFERASE 29 IU/L (21-72); ALBUMIN 2.9 g/dL (3.5-5.0); ALKALINE PHOSPHATASE 111 IU/L (38-126); ANION GAP 15 mEq/L (8-16); ASPARTATE AMINOTRANSFERASE 33 IU/L (17-59); BILIRUBIN,TOTAL 0.8 mg/dL (0.1-1.4); CARBON DIOXIDE 23 mEq/l (22-31); CHLORIDE 101 mEq/L (97-110); CREATININE 0.8 mg/dL (0.7-1.3); GLOMERULAR FILTRATION RATE > 60; GLUCOSE 286 mg/dL (70-100); POTASSIUM 4.5 mEq/L (3.5-5.2); SODIUM 139 mEq/L (134-144); TOTAL PROTEIN 6.5 g/dL (6.3-8.2)
[2017-08-18] MEDS ORDERED: VANCOMYCIN 1.5 GM in D5W 250 ML IV SCH (08:00)
[2017-08-18] MEDS: guaiFENesin 600 MG TAB.ER PO SCH ×2 (08:50→21:24)
[2017-08-18] MEDS: predniSONE 20 MG TAB PO SCH (08:50)
--- NOTE | 2017-08-18 09:35 | PDMN ---
Medical Necessity Medical necessity: GRG Pulm. Disease acidosis- 276.2 1 day- worsening cough, vomiting, weakness, SOB- min PO intake, in pt with DM1, recent Influenza A , DKA with hospitalization < 1 week, CXR shows RLL/lingular PNA, with exp. wheeze , bronchial breath sounds, rhonchi, reduced air movement, hyperglycemia, increased risk of DKA, admit for IV abx, fluids, nebs, O2, cont monitoring
[2017-08-18] MEDS: BENZONATATE 100 MG CAP PO PRN (11:48)
[2017-08-18] MEDS: guaiFENesin/CODEINE PHOS 10 ML UDCUP PO PRN ×3 (11:48→22:37)
--- NOTE | 2017-08-18 15:23 | HOSPPROG ---
Hospitalist Progress Note Assessment/Plan: # CAP - patient previously diagnosed with influenza A- then with worsening of symptoms Concern for secondary bacterial pneumonia- CT chest(personally reviewed and interpreted) shows bilateral infiltrates Blood and sputum cultures NGTD - oxygen saturations 94% on 3L - continue empiric IV antibiotics - monitor cultures # Uncontrolled diabetes- patient on insulin pump- gap closed overnight- blood sugar 231 after lunch - continue IV fluids well p.o. in adequate - continue pump insulin # acute leukocytosis presumed secondary to pneumonia- WBC 18 - recheck in a.m. # acute reactive airways exacerbation- patient without wheezing on examination today - continue inhaled bronchodilators - dc steroids tomorrow if continues to improve - monitor # proph - ambulating # diet - DM # dispo- > 2MN as requires respiratory care and support for pneumonia I have discussed the case with RN - pt will continue current pump management and IV abx Subjective: cough is terrible Objective: Vital Signs Temp Pulse Resp BP Pulse Ox 36.7 C 82 16 141/97 H 93 08/18/17 15:16 08/18/17 15:16 08/18/17 15:16 08/18/17 15:16 08/18/17 15:16 Microbiology 08/17/17 23:20 - Final Sputum, Expectorated Laboratory Results 08/18/17 04:30 08/18/17 04:30 08/17/17 08/18/17 08/19/17 05:59 05:59 05:59 Intake Total 4900 500 Balance 4900 500 PT 15.4 SEC (12.0-15.0) H 08/17/17 19:05 INR 1.22 (0.83-1.16) H 08/17/17 19:05 - Physical Exam Constitutional: appears nourished Eyes: anicteric sclera Ears, Nose, Mouth, Throat: moist mucous membranes Cardiovascular: regular rate and rhythym Respiratory: inspiratory crackles, No reduced air movement, No expiratory wheeze Gastrointestinal: normoactive bowel sounds Genitourinary: no bladder fullness Skin: warm Musculoskeletal: No asymmetric calves Neurologic: AAOx3 Psychiatric: interacting appropriately Lymph, Heme, Immunologic: no cervical LAD ICD10 Worksheet Patient Problems: Problems Problem Status Onset Pneumonia Acute Diabetic ketoacidosis Acute Influenza Acute
[2017-08-18] MEDS: FAMOTIDINE 20 MG TAB PO SCH ×2 (15:51→21:17)
[2017-08-18] MEDS: VANCOMYCIN 1.5 GM in D5W 250 ML IV SCH (21:12)
[2017-08-19] MEDS: PIPERACILLIN/TAZO 4.5 GM/DEX 100 ML IV SCH ×2 (04:04→11:32)
[2017-08-19] MEDS: guaiFENesin/CODEINE PHOS 10 ML UDCUP PO PRN ×3 (04:12→22:48)
[2017-08-19 04:33] LABS: % IMMATURE GRANULYOCYTES 1.5 % (0.0-1.1); ABSOLUTE IMMATURE GRANULOCYTES 0.19 10^3/uL (0.00-0.10); ADD DIFF? NO; ADD MORPH? NO; ADD SCAN? NO; ATYPICAL LYMPHOCYTE FLAG 30 (0-99); FRAGMENT RBC FLAG 0 (0-99); HEMATOCRIT 35.4 % (40.0-51.0); HEMOGLOBIN 12.2 g/dL (13.7-17.5); LEFT SHIFT FLG 10 (0-99); LIPEMIA HEMOLYSIS FLAG 90 (0-99); MEAN CELL HEMOGLOBIN 28.7 pg (27.9-34.1); MEAN CELL HEMOGLOBIN CONCENTR. 34.5 g/dL (32.4-36.7); MEAN CELL VOLUME 83.3 fL (81.5-99.8); MEAN PLATELET VOLUME 10.3 fL (8.7-11.7); PLATELET CLUMPS FLAG 0 (0-99); PLATELET COUNT 450 10^3/uL (150-400); RED BLOOD CELL COUNT 4.25 10^6/uL (4.40-6.38); RED CELL DISTRIBUTION WIDTH 12.4 % (11.5-15.2)
[2017-08-19] MEDS: IPRATROPIUM/ALBUTEROL 3 ML DEYVIAL IH SCH ×4 (05:09→23:33)
--- NOTE | 2017-08-19 09:28 | ASMTCMCOM ---
CM Note CM Note Notes: Patient admitted with PNA, just dcd last week with DKA, and influenza. Developed PNA. Has Type 1 diabetes and insulin pump. Seen at [facility] at . Admitted through ER. No needs identified at present but CM available should needs arise. Date Signed: 08/19/2017 09:27 AM Electronically Signed By:Debbie Bautista RN
[2017-08-19] MEDS: FAMOTIDINE 20 MG TAB PO SCH ×2 (09:38→19:43)
[2017-08-19] MEDS: guaiFENesin 600 MG TAB.ER PO SCH ×2 (09:38→19:43)
[2017-08-19] MEDS: VANCOMYCIN 1.5 GM in D5W 250 ML IV SCH (09:40)
[2017-08-19] MEDS: BENZONATATE 100 MG CAP PO PRN ×2 (11:41→22:48)
--- NOTE | 2017-08-19 15:26 | HOSPPROG ---
Hospitalist Progress Note Assessment/Plan: # CAP - patient previously diagnosed with influenza A- then with worsening of symptoms Concern for secondary bacterial pneumonia- CT chest (personally reviewed and interpreted) shows bilateral infiltrates Blood and sputum cultures remain NGTD - oxygen saturations 96% on 3L - change empiric antibiotics from vanc/zosyn to Levofloxacin today as cx negative - cont to monitor cultures # Uncontrolled diabetes- patient on insulin pump- gap closed overnight- blood sugar 112->350 suspect some hyperglycemia from steroids for RAD - continue IV fluids until p.o. in adequate - continue pump insulin # acute leukocytosis presumed secondary to pneumonia- WBC 18-> 12 this am - antibiotics as above - recheck in a.m. # acute reactive airways exacerbation- patient with minimal but persistent wheezing on examination this am - continue inhaled bronchodilators - continue steroids tomorrow if continues to improve - monitor # proph - ambulating # diet - DM # dispo- > 2MN as requires respiratory care and support for pneumonia I have discussed the case with RN - will encourage PO and activity today - suspect patient needs one more day Subjective: feels better this am Objective: Vital Signs Temp Pulse Resp BP Pulse Ox 36.6 C 90 16 134/82 H 96 08/19/17 11:08 08/19/17 12:14 08/19/17 12:14 08/19/17 11:08 08/19/17 12:14 Microbiology 08/17/17 23:20 - Final Sputum, Expectorated Sputum Culture - Final Laboratory Results 08/19/17 04:01 08/18/17 04:30 08/18/17 08/19/17 08/20/17 05:59 05:59 05:59 Intake Total 4900 1500 Balance 4900 1500 PT 15.4 SEC (12.0-15.0) H 08/17/17 19:05 INR 1.22 (0.83-1.16) H 08/17/17 19:05 - Physical Exam Constitutional: appears nourished Eyes: anicteric sclera Ears, Nose, Mouth, Throat: moist mucous membranes Cardiovascular: regular rate and rhythym Respiratory: no respiratory distress, expiratory wheeze Gastrointestinal: normoactive bowel sounds Genitourinary: no bladder fullness Skin: warm Musculoskeletal: No asymmetric calves Neurologic: AAOx3 Psychiatric: interacting appropriately Lymph, Heme, Immunologic: no cervical LAD ICD10 Worksheet Patient Problems: Problems Problem Status Onset Pneumonia Acute Diabetic ketoacidosis Acute Influenza Acute
[2017-08-19] MEDS: predniSONE 20 MG TAB PO SCH (17:43)
[2017-08-20] MEDS: IPRATROPIUM/ALBUTEROL 3 ML DEYVIAL IH SCH ×2 (05:06→11:49)
[2017-08-20 05:12] LABS: % IMMATURE GRANULYOCYTES 1.7 % (0.0-1.1); ADD DIFF? NO; ADD MORPH? NO; ADD SCAN? NO; ATYPICAL LYMPHOCYTE FLAG 40 (0-99); FRAGMENT RBC FLAG 0 (0-99); HEMATOCRIT 37.1 % (40.0-51.0); HEMOGLOBIN 13.2 g/dL (13.7-17.5); LEFT SHIFT FLG 10 (0-99); LIPEMIA HEMOLYSIS FLAG 90 (0-99); MEAN CELL HEMOGLOBIN 29.9 pg (27.9-34.1); MEAN CELL HEMOGLOBIN CONCENTR. 35.6 g/dL (32.4-36.7); MEAN CELL VOLUME 84.1 fL (81.5-99.8); PLATELET CLUMPS FLAG 0 (0-99); PLATELET COUNT 446 10^3/uL (150-400); RED BLOOD CELL COUNT 4.41 10^6/uL (4.40-6.38); RED CELL DISTRIBUTION WIDTH 12.4 % (11.5-15.2)
[2017-08-20] MEDS: guaiFENesin 600 MG TAB.ER PO SCH (10:17)
[2017-08-20] MEDS: FAMOTIDINE 20 MG TAB PO SCH (10:17)
--- NOTE | 2017-08-20 14:49 | HOSPPROG ---
Hospitalist Progress Note Assessment/Plan: # CAP - patient previously diagnosed with influenza A- then with worsening of symptoms Concern for secondary bacterial pneumonia- CT chest (personally reviewed and interpreted) shows bilateral infiltrates Blood and sputum cultures remain NGTD - oxygen saturations 96% on 3L - change empiric antibiotics from vanc/zosyn to Levofloxacin today as cx negative - cont to monitor cultures # Uncontrolled diabetes- patient on insulin pump- gap closed overnight- blood sugar 112->350 suspect some hyperglycemia from steroids for RAD - continue IV fluids until p.o. in adequate - continue pump insulin # acute reactive airways exacerbation- patient with minimal but persistent wheezing on examination this am - continue inhaled bronchodilators - continue steroids tomorrow if continues to improve - monitor Objective: Vital Signs Temp Pulse Resp BP Pulse Ox 36.8 C 100 20 117/62 94 08/20/17 14:20 08/20/17 14:20 08/20/17 14:20 08/20/17 14:20 08/20/17 14:20 Microbiology 08/17/17 23:20 - Final Sputum, Expectorated Sputum Culture - Final Laboratory Results 08/20/17 04:28 08/18/17 04:30 08/19/17 08/20/17 08/21/17 06:59 06:59 06:59 Intake Total 1500 3200 Balance 1500 3200 PT 15.4 SEC (12.0-15.0) H 08/17/17 19:05 INR 1.22 (0.83-1.16) H 08/17/17 19:05 ICD10 Worksheet Patient Problems: Problems Problem Status Onset Pneumonia Acute Diabetic ketoacidosis Acute Influenza Acute
--- NOTE | 2017-08-20 15:22 | PDDCSUM ---
Discharge Summary Discharge Summary: DISCHARGE DIAGNOSES: -ACUTE COMMUNITY AQUIRED POST INFLUENZA PNEUMONIA -ACUTE INFLUENZA -ACUTE HYPOXEMIC RESPIRATORY FAILURE -ACUTE WHEEZING IMPROVED WITH BRONCHODILATORS SUGGESTIVE OF ASTHMA/RAD -DIABETES MELLITUS PROCEDURES: CT SCAN OF CHEST HOSPITAL COURSE SUMMARY: This patient had a recent influenza illness comes in at this time with shortness of breath, wheezing and CT scan showing some scattered patchy infiltrates suggesting alveolar pneumoniae. He had acute hypoxemic respiratory failure. The patient does have a history of childhood asthma and 1 other episode of asthma with an infection since. He has not been using inhalers at home for years however. At this point he showed evidence of asthma exacerbation with prolonged expiration and diffuse expiratory wheezes shortness of breath. He was admitted the hospital and treated with antibiotics empirically for pneumonia as well as bronchodilators and steroids. He responded quite well and by this time is without shortness of breath, wheeze, cough, or fever. There is no chest pain. He is up ambulating in the hallway in his hypoxemia has resolved. He is stable for discharge to home. I did speak with the patient and his family at the bedside about asthma and that he should consider himself prone to asthmatic attacks with either infections or other possible provocation is. I recommended that he make an appointment with and cushion filler and/or electric power line repairer to review asthma and its monitoring and management and preventive care measures including yearly flu shots. They understand and are in agreement. PENDING TEST RESULTS: None MEDICATION CHANGES: Levaquin 750 mg daily for 2 more days Albuterol inhaler for as needed use Pulmicort inhaler FOLLOW-UP PLAN: With primary care at work due to health service next week With a cushion filler or electric power line repairer regarding asthma as described Greater than 35 minutes bedside and care coordination time today
[2017-08-20 16:04] VITALS: BP 126/77; PULSE 98; RESP 18; TEMP 98.1; O2SAT 96
== END 2017-08-20 17:07 | disposition home or self-care (01) | DRG 193 ==
LOC: F2N 22:26 → F1N 08-18 09:13
PROVIDERS: ADMIT Internal Medicine; ATTEND Internal Medicine
DX: J10.08 Influenza due to other identified influenza virus with other specified pneumonia (principal); J45.901 Unspecified asthma with (acute) exacerbation; J96.01 Acute respiratory failure with hypoxia; E10.65 Type 1 diabetes mellitus with hyperglycemia; Z96.41 Presence of insulin pump (external) (internal); E86.1 Hypovolemia; E87.2 Acidosis
CPT/HCPCS: 96374; J2543; J3370

== ENCOUNTER → 2019-01-12 | Outpatient (CLI) | payer OTHER | LOC: BMCIMAGING 14:13 | PROVIDERS: ATTEND Family Medicine | DX: R05 Cough (principal) ==